=== PATIENT | female | born 1985 | race Hispanic/Latino ===

== ENCOUNTER 2016-02-22 16:15 | Outpatient (CLI) | payer MEDICAID ==
[2016-02-22 16:42] VITALS: BP 107/62
--- NOTE | 2016-02-23 07:47 | Ultrasound Report ---
BIOPHYSICAL PROFILE: INDICATION: Gestational diabetes mellitus with history of elevated blood glucose. COMPARISON: None similar at this institution. TECHNIQUE: Transabdominal ultrasound with Doppler interrogation. 2 - breathing movements 2 - movements 2 - posture and tone 2 - Qualitative amniotic fluid volume 8 - TOTAL SCORE OF POSSIBLE 8 Heart Rate (bpm) 134
== END 2016-02-22 17:50 | disposition home or self-care (01) ==
LOC: TRG 16:15
PROVIDERS: ATTEND Obstetrics & Gynecology
DX: O24.419 Gestational diabetes mellitus in pregnancy, unspecified control (principal); O77.9 Labor and delivery complicated by fetal stress, unspecified; O47.9 False labor, unspecified; Z3A.00 Weeks of gestation of pregnancy not specified
CPT/HCPCS: 59025; 76819

== ENCOUNTER 2016-03-03 19:39 | Outpatient (CLI) | payer MEDICAID ==
[2016-03-03 20:04] VITALS: BP 106/68
== END 2016-03-03 20:21 | disposition home or self-care (01) ==
LOC: TRG 19:39
PROVIDERS: ATTEND Obstetrics & Gynecology
DX: O47.1 False labor at or after 37 completed weeks of gestation (principal); Z3A.39 39 weeks gestation of pregnancy
CPT/HCPCS: 82962

== ENCOUNTER 2016-03-06 08:34 | Inpatient (IN) | payer MEDICAID ==
[2016-03-06] MEDS ORDERED: SUBLIMAZE IV PRN (10:40)
[2016-03-06] MEDS ORDERED: NARCAN 0.4 MG/1 ML IV PRN (10:40)
[2016-03-06] MEDS ORDERED: MINERAL OIL PO PRN (10:40)
[2016-03-06] MEDS ORDERED: BRETHINE SUB-Q PRN (10:40)
[2016-03-06] MEDS ORDERED: STADOL IV PRN (10:40)
[2016-03-06] MEDS ORDERED: ATIVAN IV ONE (10:40)
[2016-03-06] MEDS ORDERED: POLYCILLIN/NS 2 GM/100 ML 100 ML IV ONE (10:40)
[2016-03-06] MEDS ORDERED: NUBAIN IV PRN (10:40)
[2016-03-06] MEDS ORDERED: PHENERGAN PR PRN (10:40)
[2016-03-06] MEDS ORDERED: PHENERGAN PO PRN (10:40)
[2016-03-06] MEDS ORDERED: BRETHINE IVP PRN (10:40)
[2016-03-06] MEDS ORDERED: PITOCin/NS 20 UNIT/1000ML DRIP 1,000 ML IV SCH (11:00)
[2016-03-06] MEDS ORDERED: PITOCin/NS 30 UNIT/500ML 500 ML IV SCH ×2 (11:00)
[2016-03-06] MEDS: LACTATED RINGERS 1,000 ML IV SCH ×2 (11:35→20:07)
[2016-03-06 12:14] LABS: Hematocrit 32.8 % (30.3-42.9); Hemoglobin 11.1 gm/dl (10.1-14.3); Mean Corpuscular HGB Conc 34 % (30-34); Mean Corpuscular Hemoglobin 28 pg (28-32); Mean Corpuscular Volume 83 fl (79-97); Platelet Count 109 K/mm3 (140-440); Red Blood Count 3.95 M/mm3 (3.65-5.03); Red Cell Distribution Width 14.4 % (13.2-15.2); White Blood Count 7.9 K/mm3 (4.5-11.0)
[2016-03-06] MEDS: POLYCILLIN/NS 1 GM/50 ML 50 ML IV SCH ×2 (15:09→20:07)
[2016-03-06] MEDS ORDERED: CERVIDIL VG ONE (17:12)
[2016-03-06] MEDS ORDERED: AMBIEN PO SCH (21:36)
[2016-03-07] MEDS: POLYCILLIN/NS 1 GM/50 ML 50 ML IV SCH ×3 (01:11→14:32)
[2016-03-07] MEDS: LACTATED RINGERS 1,000 ML IV SCH ×3 (05:10→12:31)
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
[2016-03-07] MEDS ORDERED: ePHEDrine SULFATE ONE (08:19)
[2016-03-07] MEDS ORDERED: SUBLIMAZE IV PRN (08:30)
[2016-03-07] MEDS ORDERED: PITOCin/NS 30 UNIT/500ML 500 ML IV SCH (08:30)
[2016-03-07] MEDS: ePHEDrine SULFATE IV PRN ×2 (09:25→09:29)
[2016-03-07] MEDS ORDERED: ePHEDrine SULFATE IV PRN (09:46)
[2016-03-07] MEDS ORDERED: NARCAN 2 MG/2 ML IV PRN (09:46)
--- NOTE | 2016-03-07 09:46 | Anesthesia Consultation ---
Anesthesia Consult and Med Hx - Airway Anesthetic Teeth Evaluation: Good ROM Head & Neck: Adequate Mental/Hyoid Distance: Adequate Mallampati Class: Class II - Pulmonary Exam CTA: Yes - Cardiac Exam Cardiac Exam: RRR - Pre-Operative Health Status ASA Pre-Surgery Classification: ASA2 Proposed Anesthetic Plan: Epidural, Spinal (labor epidural) - Pulmonary Hx Asthma: No COPD: No Hx Pneumonia: No - Cardiovascular System Hx Hypertension: No - Central Nervous System Hx Seizures: No Hx Psychiatric Problems: No - Endocrine Hx Renal Disease: No Hx End Stage Renal Disease: No Hx Non-Insulin Dependent Diabetes: (gestational diabetes) Hx Hypothyroidism: No Hx Hyperthyroidism: No - Hematic Hx Anemia: No Hx Sickle Cell Disease: No - Other Systems Hx Alcohol Use: No
[2016-03-07] MEDS ORDERED: fentaNYL-BUPIV 2 MCG/ML-0.125% 100 ML EPIDURAL SCH (10:00)
[2016-03-07] MEDS ORDERED: XYLOCAINE MPF 2% ONE (13:06)
[2016-03-07] MEDS ORDERED: PERCOCET 5/325 PO ONE (14:59)
--- NOTE | 2016-03-07 15:03 | Procedure Note ---
OB Delivery Note - Delivery Date of Delivery: 03/07/16 (8-5oz female @ 1434) Surgeon: JANICE MCKEON Estimated blood loss: 300cc - Vaginal Delivery presentation: vertex Delivery position: OA Intrapartum events: none Delivery induction: cervidil Delivery augmentation: rupture of membranes, pitocin Delivery monitor: external FHT, external uterine Route of delivery: Delivery placenta: spontaneous Delivery cord: 3 umbilical vessels Episiotomy: none Delivery laceration: 1st degree (approx well, not bleeding, not repaired) Anesthesia: epidural - Infant A at 1 minute: 8 at 5 minutes: 9 Gender: Female ( viable female, placed skin to skin. Multiple clots expressed. Pitocin infusing, Pitocin infusing. FF @ U, ML. Laceration not bleeding, not repaired.)
[2016-03-07] MEDS ORDERED: PHENERGAN PO PRN (15:04)
[2016-03-07] MEDS ORDERED: BENADRYL PO PRN (15:04)
[2016-03-07] MEDS ORDERED: DULCOLAX PR PRN (15:04)
[2016-03-07] MEDS ORDERED: TUCKS PAD TP PRN (15:04)
[2016-03-07] MEDS ORDERED: MILK OF MAGNESIA PO PRN (15:04)
[2016-03-07] MEDS ORDERED: ZOFRAN IV PRN (15:04)
[2016-03-07] MEDS ORDERED: TYLENOL PO PRN (15:04)
[2016-03-07] MEDS ORDERED: DERMOPLAST TP PRN (15:04)
[2016-03-07] MEDS ORDERED: LANSINOH TP PRN (15:04)
[2016-03-07] MEDS ORDERED: AMBIEN PO PRN (15:06)
[2016-03-07] MEDS: MOTRIN PO PRN (15:21)
[2016-03-07] MEDS ORDERED: PITOCin/NS 20 UNIT/1000ML DRIP 1,000 ML IV ONE (15:48)
[2016-03-07] MEDS ORDERED: SODIUM CHLORIDE FLUSH SYRINGE 10 ML IV NR (16:00)
[2016-03-07] MEDS ORDERED: PITOCin/NS 20 UNIT/1000ML DRIP 1,000 ML IV SCH (16:00)
[2016-03-07] MEDS: NORCO 5/325 PO PRN ×2 (18:12→22:46)
[2016-03-08] MEDS: NORCO 5/325 PO PRN (05:11)
[2016-03-08 06:35] LABS: Hematocrit 29.4 % (30.3-42.9); Hemoglobin 9.6 gm/dl (10.1-14.3)
[2016-03-08] MEDS: MOTRIN PO PRN (09:00)
[2016-03-08] MEDS ORDERED: PRENATAL VITAMIN PO SCH (10:00)
--- NOTE | 2016-03-08 10:00 | Progress Note ---
Subjective Date of service: 03/08/16 Interval history: 1st day after normal vaginal delivery Patient is in the bed, comfortable. Ambulated well. Pain is well controlled with pain meds. No residual neurological deficit. No anesthesia complications Objective - Constitutional Vitals: Vital Signs - 12hr 03/08/16 03/08/16 03/08/16 00:15 05:37 07:24 Temperature 98.6 F 99.1 F 97.9 F Pulse Rate [ 101 H 46 L From Monitor] Pulse Rate [ 76 Left Radial] Respiratory 18 14 18 Rate Blood Pressure 126/80 [Left Arm] Blood Pressure 114/66 126/46 [Right Arm] - Labs CBC & Chem 7: 03/08/16 05:47 Labs: Abnormal lab results 03/08/16 Range/Units 05:47 Hgb 9.6 L (10.1-14.3) gm/dl Hct 29.4 L (30.3-42.9) %
[2016-03-08] MEDS: PERCOCET 5/325 PO PRN ×3 (10:30→20:55)
--- NOTE | 2016-03-08 11:17 | Progress Note ---
Assessment and Plan A: PPD#1 s/p at term, Gestational Diabetes, Asymptomatic anemia P: Per pt request, discharge home. Subjective - Subjective Date of service: 03/08/16 Principal diagnosis: s/p at term; Gestational Diabetes; Asymptomatic Anemia Interval history: Pt requesting hospital discharge. She would like to go home today if possible. Patient reports: appetite normal, voiding normally, pain well controlled, ambulating normally, no nauseated [place]: doing well Objective - Vital Signs Latest vital signs: Vital Signs Temp Pulse Pulse Pulse Resp BP BP 03/08/16 07:24 97.9 F 76 18 126/80 03/08/16 05:37 99.1 F 46 L 14 03/08/16 00:15 98.6 F 101 H 18 03/07/16 16:35 98.4 F 20 03/07/16 16:02 103 H 03/07/16 15:57 116 H 03/07/16 15:53 114 H 109/57 03/07/16 15:52 115 H 03/07/16 15:47 115 H 03/07/16 15:42 110 H 03/07/16 15:38 110 H 112/75 03/07/16 15:37 114 H 03/07/16 15:32 114 H 03/07/16 15:27 114 H 03/07/16 15:23 120 H 127/84 03/07/16 15:22 112 H 03/07/16 15:17 118 H 03/07/16 15:12 121 H 03/07/16 15:09 123 H 123/60 03/07/16 15:07 121 H 03/07/16 15:02 113 H 03/07/16 14:57 110 H 03/07/16 14:55 99.2 F 18 03/07/16 14:53 114 H 130/65 03/07/16 14:39 117 H 119/58 03/07/16 14:33 99 H 03/07/16 14:25 109 H 123/81 03/07/16 14:14 68 03/07/16 14:12 104 H 03/07/16 14:08 103 H 150/88 03/07/16 14:07 103 H 03/07/16 14:00 103 H 03/07/16 13:55 67 03/07/16 13:54 109 H 114/60 03/07/16 13:50 103 H 03/07/16 13:45 109 H 03/07/16 13:38 109 H 125/83 03/07/16 13:32 117 H 03/07/16 13:27 110 H 03/07/16 13:23 107 H 120/72 03/07/16 13:22 109 H 03/07/16 13:17 115 H 03/07/16 13:12 117 H 127/67 03/07/16 13:11 98.4 F 22 03/07/16 13:10 136 H 141/72 03/07/16 13:08 122 H 123/64 03/07/16 13:07 119 H 03/07/16 13:02 112 H 03/07/16 12:57 108 H 03/07/16 12:54 110 H 116/70 03/07/16 12:52 105 H 03/07/16 12:47 109 H 03/07/16 12:42 120 H 03/07/16 12:40 106 H 115/76 03/07/16 12:37 107 H 03/07/16 12:32 105 H 03/07/16 12:27 101 H 03/07/16 12:25 104 H 140/83 03/07/16 12:22 101 H 03/07/16 12:17 111 H 03/07/16 12:12 107 H 03/07/16 12:11 98.1 F 03/07/16 12:08 111 H 138/96 03/07/16 12:07 102 H 03/07/16 12:02 115 H 03/07/16 11:57 127 H 03/07/16 11:55 103 H 108/63 03/07/16 11:52 95 H 03/07/16 11:47 89 03/07/16 11:42 110 H 03/07/16 11:38 89 101/55 03/07/16 11:37 93 H 03/07/16 11:32 91 H 03/07/16 11:27 91 H 03/07/16 11:23 93 H 100/57 03/07/16 11:22 85 03/07/16 11:17 94 H BP Pulse Ox 03/08/16 07:24 03/08/16 05:37 126/46 03/08/16 00:15 114/66 01/19/17 16:35 137/75 03/07/16 16:02 95 03/07/16 15:57 96 03/07/16 15:53 03/07/16 15:52 96 03/07/16 15:47 96 03/07/16 15:42 97 03/07/16 15:38 03/07/16 15:37 97 03/07/16 15:32 97 03/07/16 15:27 97 03/07/16 15:23 03/07/16 15:22 97 03/07/16 15:17 98 03/07/16 15:12 97 03/07/16 15:09 03/07/16 15:07 97 03/07/16 15:02 99 03/07/16 14:57 98 03/07/16 14:55 03/07/16 14:53 03/07/16 14:39 03/07/16 14:33 89 03/07/16 14:25 03/07/16 14:14 79 L 03/07/16 14:12 99 03/07/16 14:08 03/07/16 14:07 100 03/07/16 14:00 88 03/07/16 13:55 92 03/07/16 13:54 03/07/16 13:50 99 03/07/16 13:45 100 03/07/16 13:38 99 03/07/16 13:32 97 03/07/16 13:27 99 03/07/16 13:23 03/07/16 13:22 97 03/07/16 13:17 98 03/07/16 13:12 99 03/07/16 13:11 03/07/16 13:10 03/07/16 13:08 03/07/16 13:07 99 03/07/16 13:02 99 03/07/16 12:57 99 03/07/16 12:54 03/07/16 12:52 99 03/07/16 12:47 97 03/07/16 12:42 97 03/07/16 12:40 03/07/16 12:37 98 03/07/16 12:32 98 03/07/16 12:27 98 03/07/16 12:25 03/07/16 12:22 98 03/07/16 12:17 97 03/07/16 12:12 97 03/07/16 12:11 03/07/16 12:08 03/07/16 12:07 96 03/07/16 12:02 95 03/07/16 11:57 95 03/07/16 11:55 03/07/16 11:52 94 03/07/16 11:47 95 03/07/16 11:42 94 03/07/16 11:38 03/07/16 11:37 93 03/07/16 11:32 92 03/07/16 11:27 93 03/07/16 11:23 03/07/16 11:22 93 03/07/16 11:17 94 Intake and Output 03/07/16 03/08/16 03/08/16 22:59 06:59 14:59 Intake Total 3240 235 Output Total 100 800 Balance 3140 -565 Intake: IV 2750 Polycillin/Ns 1 gm/50 ml 50 50 ml @ 100 mls/hr IV Q4HR KENDRA Rx#:[id number] Lactated Ringers 1,000 ml 2200 @ 125 mls/hr IV DIRECT KENDRA Rx#:[id number] PITOCin/NS 30 UNIT/500ML 500 500 ML @ 2 MILLIUNITS/MIN 2 mls/hr IV TITR KENDRA Rx# :[id number] Oral 250 235 Intake, Free Water 240 Output: Urine 100 800 Void 800 Indwelling Catheter 100 Other: Total, Intake Amount 250 235 Total, Output Amount 100 800 # Voids Void 2 2 Estimated Blood Loss 300 - Exam Breasts: Present: deferred Cardiovascular: Present: Regular rate Lungs: Present: Clear to auscultation Abdomen: Present: soft (obese ) Uterus: Present: fundal height at umbilicus Extremities: Present: edema (trace ) - Labs Labs: Abnormal lab results 03/08/16 Range/Units 05:47 Hgb 9.6 L (10.1-14.3) gm/dl Hct 29.4 L (30.3-42.9) %
--- NOTE | 2016-03-08 11:19 | Discharge Summary ---
Providers - Providers Date of Admission: 03/06/16 08:34 Date of discharge: 03/08/16 Attending physician: SEBASTIAN MAX Primary care physician: SEBASTIAN MAX Hospitalization Reason for admission: induction of labor Delivery: Procedure details: Please see delivery note. Episiotomy: none Laceration: 1st degree Other procedures: none complications: none Discharge diagnosis: IUP at term delivered, other (Gestational Diabetes, Asymtomatic anemia ) [place] baby: female Hospital course: Pt underwent which she tolerated well. She met discharge criteria on PPD#1. Condition at discharge: Stable Disposition: DISCHARGED TO HOME OR SELFCARE - Discharge Diagnoses (1) Term of female Status: Acute (2) Gestational diabetes mellitus (GDM) affecting Status: Acute (3) Obesity (BMI 30.0-34.9) Status: Acute Plan - Discharge Medications Prescriptions: Docusate Sodium [Colace] 100 mg PO DAILY PRN #30 capsule PRN Reason: Constipation Ferrous Sulfate [Feosol 325 MG tab] 325 mg PO BID #60 tablet Ibuprofen [Motrin] 800 mg PO Q8HR PRN #30 tablet PRN Reason: Pain Vit-Fe Fumar-FA [ Vitamin] 1 tab PO QDAY #30 tablet oxyCODONE /ACETAMINOPHEN [Percocet 5/325] 1 tab PO Q6HR PRN #40 tablet PRN Reason: Pain - Provider Discharge Summary Activity: no sex for 6 weeks, no heavy lifting 4 weeks, no strenuous exercise Diet: routine Instructions: routine Additional instructions: [] Smoking cessation referral if applicable(refer to patient education folder for contact #) [] Refer to [facility] Booklet Call your doctor immediately for: * Fever > 100.5 * Heavy vaginal bleeding ( >1 pad per hour) * Severe persistent headache * Shortness of breath * Reddened, hot, painful area to leg or breast * Drainage or odor from incision. * Keep incision clean and dry at all times and follow doctor's instructions regarding bathing/showering - Follow up plan Follow up: JANICE MCKEON CNM [Advanced Practice Nurse] - 04/04/16 ( exam )
[2016-03-08] MEDS ORDERED: M-M-R II VACCINE SUB-Q ONE (15:04)
[2016-03-08] MEDS ORDERED: BOOSTRIX IM ONE (15:04)
[2016-03-08 22:52] VITALS: BP 120/72
== END 2016-03-08 21:45 | disposition home or self-care (01) | DRG 775 ==
LOC: LD 08:34 → OB 03-07 16:26
PROVIDERS: ADMIT Obstetrics & Gynecology; ATTEND Obstetrics & Gynecology
PROC: 10E0XZZ Delivery of Products of Conception, External Approach (ICD-10-PCS; principal; 2016-03-07)
PROC: 3E0P7GC Introduction of Other Therapeutic Substance into Female Reproductive, Via Natural or Artificial Opening (ICD-10-PCS; 2016-03-07)
PROC: 3E0S3CZ (ICD-10-PCS; 2016-03-07)
PROC: 00HU33Z Insertion of Infusion Device into Spinal Canal, Percutaneous Approach (ICD-10-PCS; 2016-03-07)
DX: O70.0 First degree perineal laceration during delivery (principal); O24.429 Gestational diabetes mellitus in childbirth, unspecified control; O99.820 Streptococcus B carrier state complicating pregnancy; O99.344 Other mental disorders complicating childbirth; O99.214 Obesity complicating childbirth; E66.9 Obesity, unspecified; Z3A.39 39 weeks gestation of pregnancy; Z37.0 Single live birth; Z68.32 Body mass index [BMI] 32.0-32.9, adult
CPT/HCPCS: 36415; 59200; 82962; 85014; 85018; 85027; 86850; 86900; 86901; 99211; A6250; G0463; J0290; J0595; J2060; J2300; J2590; J3010; J7120